=== PATIENT | female | born 1960 | race American Indian/Alaskan Native ===

== ENCOUNTER 2019-01-06 14:15 | Emergency (ER) | payer MEDICARE ==
--- NOTE | 2019-01-06 14:57 | Event Note ---
ED Screening Note Date of service: 01/06/19 Time: 14:53 ED Screening Note: 59 y o female with pmh of anxiety and depression just moved here from [place] presents cc of headache and dizziness since she has been out of her medication 4 days ago. She states she has been at home and sx atrted 4 days ago states left arm pain speaking in clear sentences FAST exam negative This initial assessment/diagnostic orders/clinical plan/treatment(s) is/are subject to change based on patients health status, clinical progression and re- assessment by fellow clinical providers in the ED. Further treatment and workup at subsequent clinical providers discretion. Patient/guardian urged not to elope from the ED as their condition may be serious if not clinically assessed and managed. Initial orders include: Ct head labs ordered
[2019-01-06 15:33] LABS: Basophils % (Auto) 0.5 % (0.0-1.8); Eosinophils # (Auto) 0.1 K/mm3 (0.0-0.4); Hematocrit 38.3 % (30.3-42.9); Hemoglobin 13.2 gm/dl (10.1-14.3); Lymphocytes # (Auto) 2.2 K/mm3 (1.2-5.4); Lymphocytes % (Auto) 24.6 % (13.4-35.0); Mean Corpuscular HGB Conc 35 % (30-34); Mean Corpuscular Volume 91 fl (79-97); Monocytes # (Auto) 0.6 K/mm3 (0.0-0.8); Monocytes % (Auto) 6.7 % (0.0-7.3); Platelet Count 238 K/mm3 (140-440); Red Blood Count 4.19 M/mm3 (3.65-5.03); Red Cell Distribution Width 14.5 % (13.2-15.2)
[2019-01-06 15:44] LABS: INR 0.94 (0.87-1.13)
[2019-01-06 15:45] LABS: Partial Thromboplastin Time 29.1 Sec. (24.2-36.6)
[2019-01-06 15:58] LABS: Creatine Kinase MB 1.6 ng/mL (0.0-4.0)
[2019-01-06 16:00] LABS: Alanine Aminotransferase 16 units/L (7-56); Albumin 4.4 g/dL (3.9-5); BUN/Creatinine Ratio 9; Blood Urea Nitrogen 7 mg/dL (7-17); Calcium 9.2 mg/dL (8.4-10.2); Hemolysis Index 4
--- NOTE | 2019-01-06 17:00 | Cat Scan Report ---
CT head/brain wo con INDICATION / CLINICAL INFORMATION: 59 years Female; Stroke symptoms. TECHNIQUE: Routine CT head without contrast. All CT scans at this location are performed using CT dos e reduction for ALARA by means of automated exposure control. COMPARISON: None. FINDINGS: BRAIN / INTRACRANIAL CONTENTS: Given the shape of the skull, craniosynostosis would be a consideratio n. Otherwise, no acute hemorrhage, mass effect, midline shift, hydrocephalus, or acute, large territori al infarct. No chronic infarct or focal atrophy. Normal brain volume and ventricular/sulcal size for age. No significant white matter abnormality. CRANIOCERVICAL JUNCTION: No significant abnormality. ORBITS: No significant abnormality of visualized orbits. SINUSES / MASTOIDS: No significant abnormality of the visualized paranasal sinuses or mastoid air buzz ls. ADDITIONAL FINDINGS: None. IMPRESSION: 1. No focal mass, hemorrhage, hydrocephalus, or acute, large territorial infarct. Signer Name: Donn Owens MD, III Signed: 01/06/2019 4:56 PM Workstation Name: [id number]
[2019-01-06 17:07] VITALS: BP 136/64
--- NOTE | 2019-01-06 18:06 | Emergency Department Report ---
ED Chest Pain HPI - General Chief Complaint: Chest Pain Stated Complaint: SOB/HEADACHE/DIZZINESS/N/V Time Seen by Provider: 01/06/19 14:53 Source: patient Mode of arrival: Ambulatory Limitations: No Limitations - History of Present Illness Initial Comments: 59 y.o female pt c/o left sided chest pain since . + sob and nausea, consistent with prior anxiety attacks. pt states i am having panic attacks. pt states i just moved her and my medications ran out and have not been able to find a doctor. pt anxious in triage. Severity scale (0 -10): 7 - Related Data Previous Rx's Medication Instructions Recorded Last Taken Type hydrOXYzine HCL [Atarax] 25 mg PO Q6HR PRN #30 tablet 01/06/19 Unknown Rx Metoclopramide [Reglan] 10 mg PO QID PRN #30 tablet 01/13/19 Unknown Rx Ondansetron [Zofran Odt] 4 mg PO Q8HR PRN #20 tab.rapdis 01/13/19 Unknown Rx Allergies Allergy/AdvReac Type Severity Reaction Status Date / Time No Known Allergies Allergy Unverified 01/06/19 14:16 Heart Score - HEART Score History: Slightly suspicious EKG: Non-specific Age: 45-65 Risk factors: 1-2 risk factors Troponin: < normal limit HEART Score: 3 ED Review of Systems ROS: Stated complaint: SOB/HEADACHE/DIZZINESS/N/V Other details as noted in HPI Comment: All other systems reviewed and negative Respiratory: denies: cough Cardiovascular: chest pain. denies: paroxysmal nocturnal dyspnea Gastrointestinal: denies: abdominal pain ED Past Medical Hx - Past Medical History Previous Medical History?: Yes Hx Heart Attack/AMI: Yes (x 2) Additional medical history: high cholestrol. anxiety. depression. gastro - Surgical History Past Surgical History?: Yes Hx Coronary Stent: Yes (x1) Additional Surgical History: angioplasty - Social History Smoking Status: Current Every Day Smoker Substance Use Type: None - Medications Home Medications: Home Medications Medication Instructions Recorded Confirmed Last Taken Type hydrOXYzine HCL [Atarax] 25 mg PO Q6HR PRN #30 tablet 01/06/19 Unknown Rx Metoclopramide [Reglan] 10 mg PO QID PRN #30 tablet 01/13/19 Unknown Rx Ondansetron [Zofran Odt] 4 mg PO Q8HR PRN #20 tab.rapdis 01/13/19 Unknown Rx ED Physical Exam - General Limitations: No Limitations General appearance: alert, in no apparent distress - Head Head exam: Present: atraumatic, normocephalic - Eye Eye exam: Present: normal appearance, PERRL, EOMI Pupils: Present: normal accommodation - ENT ENT exam: Present: normal exam, normal orophraynx - Neck Neck exam: Present: normal inspection - Respiratory Respiratory exam: Present: normal lung sounds bilaterally - Cardiovascular Cardiovascular Exam: Present: regular rate, normal rhythm - GI/Abdominal GI/Abdominal exam: Present: soft - Back Exam Back exam: Present: normal inspection, CVA tenderness (R) - Neurological Exam Neurological exam: Present: alert, oriented X3, CN II-XII intact - Psychiatric Psychiatric exam: Present: normal affect - Skin Skin exam: Present: warm ED Course Vital Signs 01/06/19 01/06/19 14:54 17:02 Temperature 98.3 F Pulse Rate 85 Respiratory 18 14 Rate Blood Pressure 163/122 Blood Pressure 136/64 [Left] O2 Sat by Pulse 98 98 Oximetry ED Medical Decision Making - Lab Data Result diagrams: 01/06/19 15:03 01/06/19 15:03 Critical care attestation.: If time is entered above; I have spent that time in minutes in the direct care of this critically ill patient, excluding procedure time. ED Disposition Clinical Impression: Anxiety in acute stress reaction Disposition: DC-01 TO HOME OR SELFCARE Is pt being admited?: No Does the pt Need Aspirin: No Condition: Stable Instructions: Generalized Anxiety Disorder (ED) Prescriptions: hydrOXYzine HCL [Atarax] 25 mg PO Q6HR PRN #30 tablet PRN Reason: Itching Referrals: MURIEL MACIAS MD [Primary Care Provider] - 3-5 Days
[2019-01-06] MEDS ORDERED: clonazePAM 0.5 MG TAB PO ONE (19:04)
== END 2019-01-06 20:51 | disposition home or self-care (01) ==
LOC: ED 14:15
DX: F43.0 Acute stress reaction (principal); E78.00 Pure hypercholesterolemia, unspecified; F41.9 Anxiety disorder, unspecified; F17.200 Nicotine dependence, unspecified, uncomplicated; F32.9 Major depressive disorder, single episode, unspecified; Z79.899 Other long term (current) drug therapy; Z95.1 Presence of aortocoronary bypass graft
CPT/HCPCS: 36415; 70450; 80053; 80320; 82550; 82553; 82962; 84484; 85025; 85610; 85670; 85730; 93005; 93010; 99284; G0480

== ENCOUNTER 2019-01-13 00:53 | Emergency (ER) | payer MEDICARE ==
[2019-01-13 01:39] LABS: Hematocrit 37.2 % (30.3-42.9); Hemoglobin 12.7 gm/dl (10.1-14.3); Mean Corpuscular HGB Conc 34 % (30-34); Mean Corpuscular Volume 92 fl (79-97); Platelet Count 231 K/mm3 (140-440); Red Blood Count 4.05 M/mm3 (3.65-5.03); Red Cell Distribution Width 14.4 % (13.2-15.2)
--- NOTE | 2019-01-13 01:41 | Emergency Department Report ---
<ANDRÉS HALL - Last Filed: 01/13/19 06:55> ED Psych HPI - General Chief Complaint: Seizure Stated Complaint: SEIZURE Time Seen by Provider: 01/13/19 01:25 - Related Data Previous Rx's Medication Instructions Recorded Last Taken Type hydrOXYzine HCL [Atarax] 25 mg PO Q6HR PRN #30 tablet 01/06/19 Unknown Rx Metoclopramide [Reglan] 10 mg PO QID PRN #30 tablet 01/13/19 Unknown Rx Ondansetron [Zofran Odt] 4 mg PO Q8HR PRN #20 tab.rapdis 01/13/19 Unknown Rx Allergies Allergy/AdvReac Type Severity Reaction Status Date / Time No Known Allergies Allergy Unverified 01/06/19 14:16 ED Past Medical Hx - Medications Home Medications: Home Medications Medication Instructions Recorded Confirmed Last Taken Type hydrOXYzine HCL [Atarax] 25 mg PO Q6HR PRN #30 tablet 01/06/19 Unknown Rx Metoclopramide [Reglan] 10 mg PO QID PRN #30 tablet 01/13/19 Unknown Rx Ondansetron [Zofran Odt] 4 mg PO Q8HR PRN #20 tab.rapdis 01/13/19 Unknown Rx ED Course - Reevaluation(s) Reevaluation #1: 01/13/19 06:46 Medical records reviewed and appreciated from today and from last week. Patient was informed that she would not be getting any prescription for controlled substances, and began retching. I went back to evaluate the patient, and instructed her that no controlled substances would be dispensed, that we would discharge with nonsedating [id number] nausea medication, and reiterated need for her to follow up as an outpatient 01/13/19 06:55 ED Medical Decision Making - Lab Data Result diagrams: 01/13/19 01:23 01/13/19 01:07 Vital Signs 01/13/19 01/13/19 01/13/19 00:55 01:28 01:38 Temperature 97.8 F 97.9 F Pulse Rate 84 69 70 Respiratory 22 17 17 Rate Blood Pressure 122/102 Blood Pressure 156/95 [Right] O2 Sat by Pulse 99 97 Oximetry 01/13/19 01/13/19 01/13/19 01:45 02:00 02:16 Temperature Pulse Rate 65 69 69 Respiratory 20 13 18 Rate Blood Pressure 137/75 137/75 147/83 Blood Pressure [Right] O2 Sat by Pulse 94 98 97 Oximetry 01/13/19 01/13/19 01/13/19 02:39 02:45 03:01 Temperature Pulse Rate Respiratory Rate Blood Pressure 136/71 140/78 121/65 Blood Pressure [Right] O2 Sat by Pulse 96 94 94 Oximetry 01/13/19 01/13/19 01/13/19 03:15 03:30 03:45 Temperature Pulse Rate Respiratory Rate Blood Pressure 130/79 145/87 134/84 Blood Pressure [Right] O2 Sat by Pulse 95 92 92 Oximetry 01/13/19 01/13/19 01/13/19 04:00 04:15 04:30 Temperature Pulse Rate Respiratory Rate Blood Pressure 133/81 127/89 Blood Pressure [Right] O2 Sat by Pulse 90 92 92 Oximetry 01/13/19 01/13/19 01/13/19 04:46 05:00 05:30 Temperature Pulse Rate Respiratory Rate Blood Pressure 129/65 102/66 118/67 Blood Pressure [Right] O2 Sat by Pulse 92 93 94 Oximetry 01/13/19 06:15 Temperature Pulse Rate Respiratory Rate Blood Pressure 134/86 Blood Pressure [Right] O2 Sat by Pulse 96 Oximetry Lab Results 01/13/19 01/13/19 01/13/19 Range/Units 01:07 01:23 01:59 WBC 10.5 (4.5-11.0) K/mm3 RBC 4.05 (3.65-5.03) M/mm3 Hgb 12.7 (10.1-14.3) gm/dl Hct 37.2 (30.3-42.9) % MCV 92 (79-97) fl MCH 31 (28-32) pg MCHC 34 (30-34) % RDW 14.4 (13.2-15.2) % Plt Count 231 (140-440) K/mm3 Sodium 141 (137-145) mmol/L Potassium 3.4 L (3.6-5.0) mmol/L Chloride 105.0 (98-107) mmol/L Carbon Dioxide 24 (22-30) mmol/L Anion Gap 15 mmol/L BUN 15 (7-17) mg/dL Creatinine 1.4 H (0.7-1.2) mg/dL Estimated GFR 46 ml/min BUN/Creatinine Ratio 11 % Glucose 100 (65-100) mg/dL Calcium 8.8 (8.4-10.2) mg/dL Total Bilirubin 0.20 (0.1-1.2) mg/dL Direct Bilirubin < 0.2 (0-0.2) mg/dL Indirect Bilirubin 0.0 mg/dL AST 17 (5-40) units/L ALT 13 (7-56) units/L Alkaline Phosphatase 89 (35-129) units/L Total Protein 6.5 (6.3-8.2) g/dL Albumin 4.0 (3.9-5) g/dL Albumin/Globulin Ratio 1.6 % Urine Color (Yellow) Urine Turbidity (Clear) Urine pH (5.0-7.0) Ur Specific [place] (1.003-1.030) Urine Protein (Negative) mg/dL Urine Glucose (UA) (Negative) mg/dL Urine Ketones (Negative) mg/dL Urine Blood (Negative) Urine Nitrite (Negative) Urine Bilirubin (Negative) Urine Urobilinogen (<2.0) mg/dL Ur Leukocyte Esterase (Negative) Urine WBC (Auto) (0.0-6.0) /HPF Urine RBC (Auto) (0.0-6.0) /HPF Urine Mucus /HPF Urine Opiates Screen Urine Methadone Screen Ur Barbiturates Screen Ur Phencyclidine Scrn Ur Amphetamines Screen U Benzodiazepines Scrn Urine Cocaine Screen U Marijuana (THC) Screen Drugs of Abuse Note 01/13/19 01/13/19 Range/Units 02:36 02:36 WBC (4.5-11.0) K/mm3 RBC (3.65-5.03) M/mm3 Hgb (10.1-14.3) gm/dl Hct (30.3-42.9) % MCV (79-97) fl MCH (28-32) pg MCHC (30-34) % RDW (13.2-15.2) % Plt Count (140-440) K/mm3 Sodium (137-145) mmol/L Potassium (3.6-5.0) mmol/L Chloride (98-107) mmol/L Carbon Dioxide (22-30) mmol/L Anion Gap mmol/L BUN (7-17) mg/dL Creatinine (0.7-1.2) mg/dL Estimated GFR ml/min BUN/Creatinine Ratio % Glucose (65-100) mg/dL Calcium (8.4-10.2) mg/dL Total Bilirubin (0.1-1.2) mg/dL Direct Bilirubin (0-0.2) mg/dL Indirect Bilirubin mg/dL AST (5-40) units/L ALT (7-56) units/L Alkaline Phosphatase (35-129) units/L Total Protein (6.3-8.2) g/dL Albumin (3.9-5) g/dL Albumin/Globulin Ratio % Urine Color Straw (Yellow) Urine Turbidity Clear (Clear) Urine pH 5.0 (5.0-7.0) Ur Specific [place] 1.009 (1.003-1.030) Urine Protein <15 mg/dl (Negative) mg/dL Urine Glucose (UA) Neg (Negative) mg/dL Urine Ketones Neg (Negative) mg/dL Urine Blood Sm (Negative) Urine Nitrite Neg (Negative) Urine Bilirubin Neg (Negative) Urine Urobilinogen < 2.0 (<2.0) mg/dL Ur Leukocyte Esterase Neg (Negative) Urine WBC (Auto) 6.0 (0.0-6.0) /HPF Urine RBC (Auto) 2.0 (0.0-6.0) /HPF Urine Mucus Few /HPF Urine Opiates Screen Presumptive negative Urine Methadone Screen Presumptive negative Ur Barbiturates Screen Presumptive negative Ur Phencyclidine Scrn Presumptive negative Ur Amphetamines Screen Presumptive negative U Benzodiazepines Scrn Presumptive negative Urine Cocaine Screen Presumptive negative U Marijuana (THC) Screen Presumptive negative Drugs of Abuse Note Disclamer ED Disposition Clinical Impression: General medical exam, Benzodiazepine dependence Disposition: DC-01 TO HOME OR SELFCARE Is pt being admited?: No Does the pt Need Aspirin: No Condition: Stable Additional Instructions: Long-term consumption of benzodiazepines, controlled substances may cause addiction, disability, paralysis, loss of quality of life. Recommend that the patient follow up with a primary care doctor, or any outpatient psychiatric facilities. Recommend abstinence from alcohol and controlled substances. Patient may take any nausea medications as needed/directed. Return to the emergency room right away with new, worsening or different symptoms, or symptoms not present on the initial emergency room evaluation. Patient Name: Karen Espinal Referral Recommendations: 1. [facility] Address: [address] [place] [address], [place] [id number] Hours: M-F 8AM- 5PM 2. [facility] Address:[address] [place] [address] Hours:Open [address] [facility] Address: [address] [place], [place] [address] Hours: Open today 24 Hours 5. [facility] Address: [address] [place], [place] [address] Hours: Open today 24 Hours 6. [facility] Hours: Open 24 hours Prescriptions: Metoclopramide [Reglan] 10 mg PO QID PRN #30 tablet PRN Reason: Nausea Ondansetron [Zofran Odt] 4 mg PO Q8HR PRN #20 tab.rapdis PRN Reason: Nausea Referrals: PRIMARY CARE, [Primary Care Provider] - 3-5 Days [facility] [Provider Group] - 3-5 Days [facility] [Provider Group] - 3-5 Days [facility] [Outside] - 3-5 Days <JOCELYNN IBARRA - Last Filed: 01/17/19 14:19> ED Psych HPI - General Source: patient Mode of arrival: Ambulatory - History of Present Illness Initial Comments: Patient is 59 years old female with history of posttraumatic stress disorder and generalized and anxiety. Patient presented to the ER stating that she is out of her anxiety medicine and she is having seizures because of withdrawal. Patient stated that she recently moved from [place] and she does not have any medication. Patient stated that she is taking colonazepam. Patient with stable vital signs and no clinical evidence of withdrawal. ED Review of Systems ROS: Stated complaint: SEIZURE Other details as noted in HPI Comment: All other systems reviewed and negative Constitutional: denies: chills, fever Respiratory: denies: cough Cardiovascular: denies: chest pain, palpitations Gastrointestinal: denies: abdominal pain, nausea, vomiting Musculoskeletal: denies: back pain Neurological: denies: headache, weakness Psychiatric: anxiety. denies: depression, auditory hallucinations, visual hallucinations, homicidal thoughts, suicidal thoughts ED Past Medical Hx - Past Medical History Previous Medical History?: Yes Hx Heart Attack/AMI: Yes (x 2) Hx Sickle Cell Disease: Yes Additional medical history: high cholestrol. anxiety. depression. gastro - Surgical History Past Surgical History?: Yes Hx Coronary Stent: Yes (x1) Additional Surgical History: angioplasty - Social History Smoking Status: Current Every Day Smoker Substance Use Type: None ED Physical Exam - General Limitations: No Limitations General appearance: alert, in no apparent distress - Head Head exam: Present: atraumatic, normocephalic, normal inspection - Eye Eye exam: Present: normal appearance, PERRL - ENT ENT exam: Present: normal exam, normal orophraynx, mucous membranes moist - Neck Neck exam: Present: normal inspection, full ROM. Absent: tenderness, meningismus, lymphadenopathy, thyromegaly - Respiratory Respiratory exam: Present: normal lung sounds bilaterally - Cardiovascular Cardiovascular Exam: Present: regular rate, normal rhythm, normal heart sounds - GI/Abdominal GI/Abdominal exam: Present: soft, normal bowel sounds. Absent: distended, tenderness, guarding, rebound, rigid, mass, bruit, pulsatile mass, hernia - Extremities Exam Extremities exam: Present: normal inspection, full ROM, normal capillary refill. Absent: tenderness, pedal edema, calf tenderness - Back Exam Back exam: Present: normal inspection, full ROM. Absent: CVA tenderness (R), CVA tenderness (L), muscle spasm, paraspinal tenderness, vertebral tenderness - Neurological Exam Neurological exam: Present: alert, oriented X3, CN II-XII intact, normal gait, reflexes normal - Psychiatric Psychiatric exam: Present: normal mood. Absent: depressed, agitated, anxious, flat affect, manic, homicidal ideation, suicidal ideation - Skin Skin exam: Present: warm, intact, normal color ED Course Vital Signs 01/13/19 01/13/19 01/13/19 00:55 01:28 01:38 Temperature 97.8 F 97.9 F Pulse Rate 84 69 70 Respiratory 22 17 17 Rate Blood Pressure 122/102 Blood Pressure 156/95 [Right] O2 Sat by Pulse 99 97 Oximetry 01/13/19 01/13/19 01/13/19 01:45 02:00 02:16 Temperature Pulse Rate 65 69 69 Respiratory 20 13 18 Rate Blood Pressure 137/75 137/75 147/83 Blood Pressure [Right] O2 Sat by Pulse 94 98 97 Oximetry 01/13/19 01/13/19 01/13/19 02:39 02:45 03:01 Temperature Pulse Rate Respiratory Rate Blood Pressure 136/71 140/78 121/65 Blood Pressure [Right] O2 Sat by Pulse 96 94 94 Oximetry 01/13/19 01/13/19 01/13/19 03:15 03:30 03:45 Temperature Pulse Rate Respiratory Rate Blood Pressure 130/79 145/87 134/84 Blood Pressure [Right] O2 Sat by Pulse 95 92 92 Oximetry 01/13/19 01/13/19 01/13/19 04:00 04:15 04:30 Temperature Pulse Rate Respiratory Rate Blood Pressure 133/81 127/89 Blood Pressure [Right] O2 Sat by Pulse 90 92 92 Oximetry 01/13/19 01/13/19 01/13/19 04:46 05:00 05:30 Temperature Pulse Rate Respiratory Rate Blood Pressure 129/65 102/66 118/67 Blood Pressure [Right] O2 Sat by Pulse 92 93 94 Oximetry 01/13/19 06:15 Temperature Pulse Rate Respiratory Rate Blood Pressure 134/86 Blood Pressure [Right] O2 Sat by Pulse 96 Oximetry ED Medical Decision Making - Lab Data Result diagrams: 01/13/19 01:23 01/13/19 01:07 Critical care attestation.: If time is entered above; I have spent that time in minutes in the direct care of this critically ill patient, excluding procedure time.
[2019-01-13 01:53] LABS: Calcium 8.8 mg/dL (8.4-10.2)
[2019-01-13 02:35] LABS: Alanine Aminotransferase 13 units/L (7-56); Bilirubin,Direct < 0.2 mg/dL (0-0.2)
[2019-01-13 02:48] LABS: Bilirubin,Urine NEG (Negative); Blood,Urine SM (Negative); Color,Urine Straw (Yellow); Mucus,Urine FEW /HPF; Protein,Urine <15 mg/dL mg/dL (Negative); Urobilinogen,Urine < 2.0 mg/dL (<2.0)
[2019-01-13 02:56] LABS: Amphetamine Screen,Urine PRESUMPTIVE NEGATIVE; Benzodiazepines Screen,Urine PRESUMPTIVE NEGATIVE; Cannabinoid Screen,Urine PRESUMPTIVE NEGATIVE; Cocaine Screen,Urine PRESUMPTIVE NEGATIVE; Methadone Screen,Urine PRESUMPTIVE NEGATIVE; Opiate Screen,Urine PRESUMPTIVE NEGATIVE
[2019-01-13 06:30] VITALS: BP 134/86
== END 2019-01-13 06:59 | disposition home or self-care (01) ==
LOC: ED 00:53
DX: F13.20 Sedative, hypnotic or anxiolytic dependence, uncomplicated (principal); F41.9 Anxiety disorder, unspecified; F43.10 Post-traumatic stress disorder, unspecified; E78.00 Pure hypercholesterolemia, unspecified; Z95.1 Presence of aortocoronary bypass graft; F17.200 Nicotine dependence, unspecified, uncomplicated
CPT/HCPCS: 36415; 80048; 80076; 80307; 81001; 85027; 99284